=== PATIENT | male | born 1980 | race Caucasian/White ===

== ENCOUNTER 2023-08-02 18:07 | Emergency (ER) | payer BC ==
[2023-08-02] MEDS ORDERED: Sodium Chloride 0.9% 10 ML Syringe FLUSH PRN (18:21)
[2023-08-02 18:41] LABS: BASOPHILS PERCENT AUTO 0.4 % (0.0-1.0); EOSINOPHILS PERCENT AUTO 0.6 % (1.0-3.0); HEMATOCRIT 41.1 % (40.0-54.0); HEMOGLOBIN 13.7 g/dL (14.0-18.0); LYMPHOCYTES PERCENT AUTO 41.1 % (20.5-50.1); MEAN CORPUSCULAR HEMOGLOBIN 30.2 pg (27.0-34.0); MEAN CORPUSCULAR HGB CONC 33.3 g/dL (33.0-35.0); MEAN CORPUSCULAR VOLUME 90.5 fL (80-100); MONOCYTES PERCENT AUTO 8.7 % (2-8); NEUTROPHILS PERCENT AUTO 49.2 % (42.2-75.2); PLATELET COUNT,PLT 241 10^3/uL (150-450); RED BLOOD CELL COUNT 4.54 10^6/uL (4.6-6.2)
[2023-08-02 18:59] LABS: ALBUMIN 4.2 g/dL (3.4-5.0); ANION GAP 13.9 mEq/L (7-13); BILIRUBIN TOTAL 0.6 mg/dL (0.2-1.0); BUN/CREATININE RATIO 14.8 (No establ ref range); CALCIUM 8.9 mg/dL (8.5-10.1); CREATININE 1.28 mg/dL (0.70-1.30); EST CRCL DRUG DOSING (CG) 87.41 mL/min; POTASSIUM,K 3.9 mmol/L (3.5-5.1); PROTEIN TOTAL,TP 8.6 g/dL (6.4-8.2)
== END 2023-08-02 19:40 | disposition home or self-care (01) ==
LOC: DL.ED 18:07
DX: R07.89 Other chest pain (principal); I10 Essential (primary) hypertension; Z91.018 Allergy to other foods
CPT/HCPCS: 36415; 71045; 80053; 84484; 85025; 85379; 93005; 93010; 99284; 99285; J3490

== ENCOUNTER 2023-09-24 00:45 | Inpatient (IN) | payer BC ==
[2023-09-24] MEDS ORDERED: Activated Charcoal/Water Susp 50 GM/240 ML Tube PO ONE (00:48)
[2023-09-24] MEDS ORDERED: Sodium Chloride 0.9% 1,000 ML IV ONE ×2 (00:49→01:16)
[2023-09-24 01:04] LABS: BASOPHILS PERCENT AUTO 0.9 % (0.0-1.0); HEMATOCRIT 43.5 % (40.0-54.0); HEMOGLOBIN 14.7 g/dL (14.0-18.0); LYMPHOCYTES PERCENT AUTO 15.5 % (20.5-50.1); MEAN CORPUSCULAR HEMOGLOBIN 29.9 pg (27.0-34.0); MEAN CORPUSCULAR HGB CONC 33.8 g/dL (33.0-35.0); MEAN CORPUSCULAR VOLUME 88.6 fL (80-100); MONOCYTES PERCENT AUTO 7.8 % (2-8); NEUTROPHILS PERCENT AUTO 75.8 % (42.2-75.2); PLATELET COUNT,PLT 258 10^3/uL (150-450); RED BLOOD CELL COUNT 4.91 10^6/uL (4.6-6.2); WHITE BLOOD CELL COUNT,WBC 10.6 10^3/uL (5.0-10.0)
[2023-09-24] MEDS ORDERED: Ondansetron 4 MG/2 ML SDV IVPUSH ONE ×2 (01:09→04:43)
[2023-09-24] MEDS ORDERED: Aluminum Hydroxide/Magnesium Hydroxide/Simethicone Susp 30 ML Cup PO ONE (01:09)
[2023-09-24] MEDS ORDERED: Lidocaine 2% Viscous Solution 15 ML UD PO ONE (01:09)
[2023-09-24] MEDS ORDERED: Pantoprazole 40 MG Vial IVPUSH ONE (01:09)
[2023-09-24 01:20] LABS: A/G RATIO 1.6; ALANINE AMINOTRANSFERASE,ALT 14 U/L (16-63); ALBUMIN 4.9 g/dL (3.4-5.0); ALKALINE PHOSPHATASE 68 U/L (46-116); AMYLASE 28 U/L (25-115); ANION GAP 18.8 mEq/L (7-13); ASPARTATE AMNIOTRANSFERASE,AST 21 U/L (15-37); BILIRUBIN TOTAL 1.4 mg/dL (0.2-1.0); BLOOD UREA NITROGEN,BUN 14 mg/dL (7-18); BUN/CREATININE RATIO 10.5 (No establ ref range); CARBON DIOXIDE,CO2 23 mmol/L (21-32); CHLORIDE,CL 97 mmol/L (98-107); CREATININE 1.33 mg/dL (0.70-1.30); ETHANOL BLOOD MEDICAL 3 mg/dL (0); GLUCOSE RANDOM 159 mg/dL (70-99); INR 1.1 (0.9-1.2); LIPASE 30 U/L (16-77); MAGNESIUM 1.7 mg/dL (1.8-2.4); POTASSIUM,K 3.8 mmol/L (3.5-5.1); PROTEIN TOTAL,TP 7.9 g/dL (6.4-8.2); PTT,PARTIAL THROMBOPLSTIN TIME 23.8 SEC (22.0-34.0); SODIUM,NA 135 mmol/L (136-145)
[2023-09-24 01:22] LABS: ESTIMATED GFR 68 mL/min (>=60)
[2023-09-24 01:24] LABS: ACETAMINOPHEN 105 ug/mL (10-30 (Therapeutic)); LACTIC ACID 3.1 mmol/L (0.4-2.0)
[2023-09-24 02:22] LABS: APPEARANCE,URINE CLEAR (CLEAR); BILIRUBIN,URINE NEGATIVE (NEGATIVE); COLOR,URINE YELLOW (YELLOW); GLUCOSE,URINE NEGATIVE (NEGATIVE); KETONES,URINE TRACE (NEGATIVE); LEUKOCYTE ESTERASE,URINE NEGATIVE (NEGATIVE); NITRITE,URINE NEGATIVE (NEGATIVE); OCCULT BLOOD,URINE TRACE-INTACT (NEGATIVE); PH,URINE 5.5 (5.0-9.0); PROTEIN,URINE NEGATIVE (NEGATIVE); UROBILINOGEN,URINE 0.2 mg/dL (0.2-1.0)
[2023-09-24 02:29] LABS: AMPHETAMINES,URINE NEGATIVE (NEGATIVE); BARBITURATES,URINE NEGATIVE (NEGATIVE); BENZODIAZEPINE,URINE NEGATIVE (NEGATIVE); MDMA (ECSTASY), URINE NEGATIVE (NEGATIVE); METHADONE,URINE NEGATIVE (NEGATIVE); METHAMPHETAMINES,URINE NEGATIVE (NEGATIVE); OPIATES,URINE NEGATIVE (NEGATIVE); OXYCODONE,URINE NEGATIVE (NEGATIVE); PHENCYCLIDINE,URINE NEGATIVE (NEGATIVE); TCA,URINE NEGATIVE (NEGATIVE)
[2023-09-24 03:00] LABS: WBC,URINE 0-5 /HPF (0-5/HPF)
[2023-09-24 03:01] LABS: BACTERIA,URINE FEW /HPF (0-FEW/HPF); EPITHELIAL CELLS,URINE FEW /HPF (NOT SEEN); HYALINE CASTS,URINE FEW; MUCUS,URINE MODERATE /LPF (NOT SEEN); RBC,URINE 0-5 /HPF (0-5)
[2023-09-24] MEDS ORDERED: Ondansetron 4 MG Tab.DIS PO PRN (05:26)
[2023-09-24] MEDS ORDERED: Sodium Chloride 0.9% 1,000 ML IV SCH (05:30)
[2023-09-24 08:22] LABS: A/G RATIO 1.5; ALBUMIN 3.8 g/dL (3.4-5.0); ANION GAP 14.9 mEq/L (7-13); BILIRUBIN TOTAL 4.4 mg/dL (0.2-1.0); BUN/CREATININE RATIO 9.3 (No establ ref range); CALCIUM 7.8 mg/dL (8.5-10.1); CREATININE 1.29 mg/dL (0.70-1.30); EST CRCL DRUG DOSING (CG) 86.73 mL/min; POTASSIUM,K 3.9 mmol/L (3.5-5.1); PROTEIN TOTAL,TP 6.4 g/dL (6.4-8.2)
[2023-09-24 08:25] LABS: INR 1.2 (0.9-1.2); PROTHROMBIN TIME 12.1 SEC (9.0-12.0)
[2023-09-24] MEDS: Pantoprazole 40 MG Vial IVPUSH SCH (09:12)
[2023-09-25 06:23] LABS: HEMATOCRIT 44.4 % (40.0-54.0); HEMOGLOBIN 14.6 g/dL (14.0-18.0); MEAN CORPUSCULAR HEMOGLOBIN 29.6 pg (27.0-34.0); MEAN CORPUSCULAR HGB CONC 32.9 g/dL (33.0-35.0); MEAN CORPUSCULAR VOLUME 90.1 fL (80-100); PLATELET COUNT,PLT 248 10^3/uL (150-450); RED BLOOD CELL COUNT 4.93 10^6/uL (4.6-6.2)
[2023-09-25 06:34] LABS: BASOPHILS PERCENT AUTO 0.5 % (0.0-1.0); EOSINOPHILS PERCENT AUTO 0.2 % (1.0-3.0); LYMPHOCYTES PERCENT AUTO 12.6 % (20.5-50.1); MONOCYTES PERCENT AUTO 5.9 % (2-8); NEUTROPHILS PERCENT AUTO 80.8 % (42.2-75.2)
[2023-09-25 07:30] LABS: LYMPHOCYTES PERCENT MAN 15 % (20-50); MONOCYTES PERCENT MAN 3 % (2-8); SEG NEUTROPHILS PERCENT MAN 82 % (42-75)
[2023-09-25] MEDS: Pantoprazole 40 MG Vial IVPUSH SCH (09:17)
[2023-09-25] MEDS ORDERED: QUEtiapine 25 MG Tab PO ONE (12:24)
[2023-09-25] MEDS ORDERED: Haloperidol Lactate 5 MG/ML SDV IM ONE (16:11)
== END 2023-09-25 17:55 | DRG 817 ==
LOC: DL.ED 00:45 → DL.MS 04:44
PROVIDERS: ADMIT Internal Medicine; ATTEND Internal Medicine
DX: T39.1X2A Poisoning by 4-Aminophenol derivatives, intentional self-harm, initial encounter (principal); F22 Delusional disorders; I10 Essential (primary) hypertension; E83.42 Hypomagnesemia; E78.00 Pure hypercholesterolemia, unspecified; F41.9 Anxiety disorder, unspecified; T39.312A Poisoning by propionic acid derivatives, intentional self-harm, initial encounter; Z91.018 Allergy to other foods; Z90.10 Acquired absence of unspecified breast and nipple; Z79.899 Other long term (current) drug therapy
CPT/HCPCS: 36415; 80053; 80143; 80179; 80305-QW; 80307; 81001; 82150; 83605; 83690; 83735; 84484; 85025; 85610; 85730; 93005; 96361; 96374; 96375; 99285-25; A9270-GY; C9113; J2405; J7030

== ENCOUNTER 2023-11-06 16:45 | Emergency (ER) | payer BC ==
[2023-11-06 17:21] LABS: APPEARANCE,URINE CLEAR (CLEAR); BILIRUBIN,URINE NEGATIVE (NEGATIVE); COLOR,URINE YELLOW (YELLOW); GLUCOSE,URINE NEGATIVE (NEGATIVE); KETONES,URINE TRACE (NEGATIVE); LEUKOCYTE ESTERASE,URINE NEGATIVE (NEGATIVE); NITRITE,URINE NEGATIVE (NEGATIVE); OCCULT BLOOD,URINE NEGATIVE (NEGATIVE); PROTEIN,URINE NEGATIVE (NEGATIVE); UROBILINOGEN,URINE 0.2 mg/dL (0.2-1.0)
[2023-11-06] MEDS: Sodium Chloride 0.9% 10 ML Syringe FLUSH PRN (17:25)
[2023-11-06 17:29] LABS: HEMATOCRIT 41.2 % (40.0-54.0); MEAN CORPUSCULAR HEMOGLOBIN 30.5 pg (27.0-34.0); MEAN CORPUSCULAR VOLUME 89.8 fL (80-100); PLATELET COUNT,PLT 273 10^3/uL (150-450); RED BLOOD CELL COUNT 4.59 10^6/uL (4.6-6.2); WHITE BLOOD CELL COUNT,WBC 9.5 10^3/uL (5.0-10.0)
[2023-11-06 17:38] LABS: A/G RATIO 1.1; ALANINE AMINOTRANSFERASE,ALT 14 U/L (16-63); ALBUMIN 4.1 g/dL (3.4-5.0); ALKALINE PHOSPHATASE 64 U/L (46-116); AMYLASE 41 U/L (25-115); ANION GAP 13.6 mEq/L (7-13); ASPARTATE AMNIOTRANSFERASE,AST 14 U/L (15-37); BASOPHILS PERCENT AUTO 0.7 % (0.0-1.0); BILIRUBIN TOTAL 0.6 mg/dL (0.2-1.0); BLOOD UREA NITROGEN,BUN 17 mg/dL (7-18); BUN/CREATININE RATIO 14.4 (No establ ref range); CALCIUM 8.8 mg/dL (8.5-10.1); CARBON DIOXIDE,CO2 27 mmol/L (21-32); CHLORIDE,CL 98 mmol/L (98-107); CREATININE 1.18 mg/dL (0.70-1.30); EOSINOPHILS PERCENT AUTO 0.2 % (1.0-3.0); GLUCOSE RANDOM 111 mg/dL (70-99); LIPASE 64 U/L (16-77); LYMPHOCYTES PERCENT AUTO 22.4 % (20.5-50.1); MONOCYTES PERCENT AUTO 7.1 % (2-8); NEUTROPHILS PERCENT AUTO 69.6 % (42.2-75.2); POTASSIUM,K 3.6 mmol/L (3.5-5.1); PROTEIN TOTAL,TP 7.9 g/dL (6.4-8.2); SODIUM,NA 135 mmol/L (136-145)
[2023-11-06 17:39] LABS: C-REACTIVE PROTEIN < 0.50 ng/dL (<=0.50); ESTIMATED GFR 79 mL/min (>=60)
[2023-11-06 17:42] LABS: LACTIC ACID 1.5 mmol/L (0.4-2.0)
[2023-11-06 18:15] LABS: LYMPHOCYTES PERCENT MAN 19 % (20-50); MONOCYTES PERCENT MAN 5 % (2-8); PLATELET COUNT ESTIMATE ADEQUATE; SEG NEUTROPHILS PERCENT MAN 76 % (42-75)
[2023-11-06] MEDS: Lactulose Soln 10 GM/15 ML 30 ML UD Cup PO ONE (18:45)
[2023-11-06] MEDS: Bisacodyl 5 MG Tab PO ONE (18:46)
== END 2023-11-06 18:58 | disposition home or self-care (01) ==
LOC: DL.ED 16:45
DX: K59.00 Constipation, unspecified (principal); I10 Essential (primary) hypertension
CPT/HCPCS: 36415; 74176; 80053; 81003; 82150; 83605; 83690; 84145; 84484; 85025; 86140; 93005; 93010; 99284; A9270; J3490

== ENCOUNTER 2024-10-26 05:52 | Day surgery (SDC) | payer BC ==
[2024-10-26] MEDS: Dextrose 5%-0.45% NaCl 1,000 ML IV SCH (06:11)
[2024-10-26] MEDS ORDERED: Midazolam 1 MG/ML 2 ML SDV ONE (06:14)
[2024-10-26] MEDS ORDERED: fentaNYL 100 MCG/2 ML SDV IV ONE (06:15)
[2024-10-26] MEDS ORDERED: fentaNYL 100 MCG/2 ML SDV ONE (06:15)
[2024-10-26] MEDS ORDERED: Midazolam 1 MG/ML 2 ML SDV IV ONE (06:15)
[2024-10-26] MEDS: fentaNYL 100 MCG/2 ML SDV IV ONE ×3 (07:15→07:23)
[2024-10-26] MEDS: Midazolam 1 MG/ML 2 ML SDV IV ONE ×6 (07:16→07:22)
== END 2024-10-26 08:54 | disposition home or self-care (01) ==
LOC: DL.ENDO 05:52
PROVIDERS: ATTEND Internal Medicine Gastroenterology
DX: D12.4 Benign neoplasm of descending colon (principal); K57.31 Diverticulosis of large intestine without perforation or abscess with bleeding; K64.8 Other hemorrhoids; K64.4 Residual hemorrhoidal skin tags
CPT/HCPCS: 45385; J2250; J3010; J7799